=== PATIENT | male | born 1970 | race Caucasian/White ===

== ENCOUNTER 2025-02-04 08:49 | Day surgery (SDC) | payer BC ==
[~2025-02-04 08:49] MED LIST: Midazolam 1 MG/ML 2 ML SDV ONE; Propofol 200 MG/20 ML SDV ONE; fentaNYL 100 MCG/2 ML SDV ONE
[2025-02-04] MEDS: Lactated Ringers 1,000 ML IV SCH (09:35)
== END 2025-02-04 11:45 | disposition home or self-care (01) ==
LOC: JP.SDS 08:49
PROVIDERS: ATTEND Surgery
DX: Z12.11 Encounter for screening for malignant neoplasm of colon (principal); Z88.2 Allergy status to sulfonamides; Z79.82 Long term (current) use of aspirin; Z79.899 Other long term (current) drug therapy
CPT/HCPCS: 45378; J2250; J2704; J3010; J7120; 00812-QZ